=== PATIENT | male | born 1960 | race Caucasian/White ===

== ENCOUNTER 2024-02-03 19:12 | Emergency (ER) | payer OTHER, SELFPAY ==
[2024-02-03 19:28] VITALS: BP 146/81; PULSE 100; RESP 20; TEMP 37.3; O2SAT 100
--- NOTE | 2024-02-03 19:55 | ED.URI ---
HPI - URI/Sore Throat General Chief Complaint: Upper Respiratory Infection Stated Complaint: Headache/Cough Time Seen by Provider: 02/03/24 19:35 Source: patient, RN notes reviewed and old records reviewed Mode of arrival: ambulatory Limitations: no limitations History of Present Illness HPI Narrative: 63 year old male presents to [facility] care with 10 day history of head congestion with nasal drainage and some greenish tinged sputum/nasal drainage, with loose cough, initially sore throat. Patient reports that he just returned from vacation to [facility] and was [place] the whole vacation. Patient reports no shortness of breath or any noted wheezing, states that he has felt feverish at intervals . Patient reports that he has been taking Tylenol,Ibuprofen and decongestant for his symptoms. MD elicited complaint: cough, sore throat, rhinorrhea, nasal congestion, sinus pain and other (headache) Onset (ago): day(s) (10) Pain scale (0-10): 7 Description of mucous: green Able to tolerate fluids by mouth: Yes Treatments prior to arrival: acetaminophen, ibuprofen and other (decogestant) Related Data Home Medications Medication Instructions Recorded Confirmed atorvastatin 80 mg tablet 80 mg PO DAILY 02/03/24 02/03/24 hydrochlorothiazide 25 mg tablet 25 mg PO DAILY 02/03/24 02/03/24 lisinopril 40 mg tablet 40 mg PO DAILY 02/03/24 02/03/24 metformin 1,000 mg tablet 1,000 mg PO BID 02/03/24 02/03/24 omeprazole 20 mg capsule,delayed 20 mg PO DAILY 02/03/24 02/03/24 release semaglutide 14 mg tablet (Rybelsus) 14 mg PO 02/03/24 Allergies Allergy/AdvReac Type Severity Reaction Status Date / Time No Known Allergies Allergy Verified 02/03/24 20:01 Review of Systems Review of Systems: CONSTITUTIONAL:Reports malaise, chills, sweats, or fever. EYES: Denies visual changes, redness, or discharge. ENT: Reports rhinorrhea, congestion, sinus pain,no otalgia and sore throat. CARDIOVASCULAR: Denies chest pain, palpitations, or edema. RESPIRATORY: Reports productive cough.? Denies dyspnea. GASTROINTESTINAL: Denies abdominal pain, nausea, vomiting, diarrhea SKIN: Denies rash or itching. MUSCULOSKELETAL: Denies myalgia. NEUROLOGIC: Reports headache. All systems reviewed & are unremarkable except as noted in HPI and below PMFSH Past Medical History Medical History (Updated 02/04/24 @ 23:49 by Phoebe Delgado NP) Diabetes GERD (gastroesophageal reflux disease) Hyperlipidemia Hypertension Surgical History Surgical History (Updated 02/04/24 @ 23:41 by Phoebe Delgado NP) H/O arthroscopy of left knee S/P cervical spinal fusion Social History Social History (Updated 02/04/24 @ 23:42 by Phoebe Delgado NP) Alcohol intake: current Alcohol use details: social Substance use type: does not use Living arrangements: with family Gender identity (if verbalized by the patient): Male Comments At time of signature, agree with nursing past medical, surgical, social and family history. There is no relevant family history pertinent to the presenting complaint Exam Narrative: GENERAL: Well-appearing, well-nourished, and in no acute distress. HEAD: Normocephalic EYES: PERRLA, conjunctivae clear ENT: Nares clear, turbinates edematous and erythematous, green tinged mucous, sinus pain and headache. Mucous membranes moist. TM pearly jasso with dull light reflex bilaterally; no tragal tenderness. Oropharynx erythematous without lesions. Tonsils not enlarged and without exudate, no drooling, no hoarseness, no trismus, uvula midline.post nasal drainage NECK: Supple. No lymphadenopathy CHEST: Clear to auscultation, breath sounds equal. No wheezing, rhonchi, rales, or stridor. No respiratory distress, speaks in full sentences.productive cough,SAO2 100% on room air HEART: Regular rate and rhythm. No murmur heard. SKIN: Warm, dry, no rash. NEURO: Alert and oriented x3. PSYCH: Normal mood and affect Course
== END 2024-02-03 20:10 | disposition home or self-care (01) ==
PROVIDERS: Emergency Provider Registered Nurse; PCP Internal Medicine
DX: J32.9 Chronic sinusitis, unspecified (principal); E11.9 Type 2 diabetes mellitus without complications; Z79.84 Long term (current) use of oral hypoglycemic drugs; K21.9 Gastro-esophageal reflux disease without esophagitis; E78.5 Hyperlipidemia, unspecified; I10 Essential (primary) hypertension
CPT/HCPCS: 99213; G0463

== ENCOUNTER 2024-10-03 11:31 | Emergency (ER) | payer OTHER, SELFPAY ==
--- OUTSIDE RECORDS SUMMARY | 2024-10-03 11:34 | XMS_ITS | Clinical Summary ---
Author Organization [facility] Address [address] [place] [address] Care Team Providers Care Skin Former Name Role Phone Sanjay Connolly MD Primary Care Provider + Allergies No known active allergies Medications metFORMIN (GLUCOPHAGE) 1,000 mg tablet Take 1 tablet (1,000 mg total) by mouth 2 (two) times a day 0 Active lisinopriL (PRINIVIL,ZESTR IL) 40 mg tablet Take 1 tablet (40 mg total) by mouth daily 0 Active hydroCHLOROthia zide (HYDRODIURIL) 25 mg tablet Take 1 tablet (25 mg total) by mouth daily 0 Active atorvastatin (LIPITOR) 80 mg tablet Take 1 tablet (80 mg total) by mouth daily 0 Active omeprazole (PriLOSEC) 20 mg capsule Take 1 capsule (20 mg total) by mouth daily 0 Active FreeStyle Av 2 Sensor kit WEAR FOR 14 DAYS TO CHECK BLOOD SUGARS DAILY. 3 Active Rybelsus 14 mg tablet Take 1 tablet (14 mg total) by mouth daily 3 Active aspirin 81 mg enteric coated tablet Take 1 tablet (81 mg total) by mouth daily Active HYDROcodone-alfred taminophen (NORCO) 5-325 mg per tabletIndicatio ns:Pain Take 1-2 tablets every 4-6 hours as needed for pain 50 tablet 3 Active Additional Information Patient not taking.Reported on 02/08/2023 Active Problems Problem Noted Date Diagnosed Date Complex tear of medial menis cus of left knee as current injury 12/14/2022 Screen for colon cancer 09/09/2018 Overview (09/09/2018): Added automatically from request for surgery [id number] Diabetes mellitus 03/11/2018 02/08/2023 Lower extremity edema 11/22/2017 02/08/2023 Obesity (BMI 30-39.9) 11/22/2017 02/08/2023 Tobacco use 10/11/2015 02/08/2023 Chronic kidney disease, stage I 01/15/2014 02/08/2023 Hyperlipidemia 11/20/2012 02/08/2023 Hypertension, essential 11/20/2012 02/09/20 Surgical History Surgery Date Site/Laterality Comments KNEE SURGERY Left CERVICAL SPINE SURGERY Fusions VASECTOMY KNEE SURGERY 12/25/2022 Left Left knee arthroscopy with synovectomy and femoral chondroplasty Medical History Medical History Date Comments Diabetes mellitus (HCC) Hypertension Gastric reflux Gout Hypercholesteremia Complex tear of medial meniscus of left knee as current injury Type 2 diabetes mellitus (HCC) Family History Medical History Relation Name Comments Arthritis Other Cancer Other Diabetes Other Heart disease Other Hypertension Other Mental illness Other Relation Name Status Comments Other Social History Tobacco Use Types Packs/Day Years Used Date Smoking Tobacco: Former Cigarettes Smokeless Tobacco: Former Chew Tobacco Cessation:Counseling Given: Not Answered Comments:Quit smoking >30 years ago AUDIT-C Answer Date Recorded Q1: How often do you have a drink containing alcohol? Never 12/25/2022 Q2: How many drinks containi ng alcohol do you have on a typical day when you are drinking? Patient does not drink Q3: How often do you have si x or more drinks on one occasion? Never 12/25/2022 Personal Safety Answer Date Recorded Have you ever been in or are you currently in a harmful physical or emotional relationship or is someone making you feel afraid or unsafe? 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 Gender Identity Not on file Sexual Orientation Not on file Obstetrics History Last Filed Vital Signs Vital Sign Reading Time Taken Comments Blood Pressure 168/88 12/25/2022 11:05 AM CDT Pulse 68 12/25/2022 11:05 AM CDT Temperature 36.1 C (97 F) 12/25/2022 9:51 AM CDT Respiratory Rate 12 12/25/2022 11:05 AM CDT Oxygen Saturation 97% 12/25/2022 11:05 AM CDT Inhaled Oxygen Concentration - - Weight 81.6 kg (180 lb) 02/08/2023 11:40 AM CDT Height 172.7 cm (5' 8 ) 02/08/2023 11:40 AM CDT Body Mass Index 27.37 02/08/2023 11:40 AM CDT Plan of Treatment Health Maintenance Due Date Last Done Comments Albumin Creatinine Ratio, Urine 1960 Colon Cancer Screening-Colonoscopy 1960 Depression Screening 1960 Hemoglobin A1C 1960 Hepatitis C Screening 1960 Prostate Cancer Screening-PSA 1960 eGFR 1960 Dilated Eye Exam 1960 Foot Exam 1960 Lipid Panel 1960 DTaP/Tdap/Td Vaccine (1 - Tdap) 12/24/1971 Hepatitis B Screening 1978 Regular Well Visit/Exam 18-64 1978 Zoster Vaccine (1 of 2) 2010 Pneumococcal vaccine <65 (2 of 2 - PCV) 08/11/2020 1 10/12/2018 Influenza Vaccine (#1) 2024 08/11/2019 Insurance [employer] OPEN ACCESS [employer] [employer] MEDICARE SUPP Care Teams Skin Former Relationship Specialty Start Date End Date Sanjay Connolly MD [address] [facility] [place] [address] PCP - General Internal Medicine 09/03/18
--- OUTSIDE RECORDS SUMMARY | 2024-10-03 11:34 | XMS_ITS | Clinical Summary ---
Author Organization [facility] Address [address] [facility] Attn: Epic Prelude ADT [place] [address] Care Team Providers Care Oil Refinery Operator Name Role Phone Provider, Abstract Aok Primary Care Provider Alexa vailable Allergies No known active allergies Medications atorvastatin (LIPITOR) 10 mg tablet TAKE 1 TABLET BY MOUTH AT BEDTIME 30 Tablet 4 08/02/2016 Active amLODIPine-olme sartan 10-40 mg Tablet Take 1 Tablet by mouth daily. 90 Tablet 0 08/13/2016 Active dapagliflozin-m etFORMIN (Xigduo XR) 10-1,000 mg tablet, IR & ER, biphasic 24hr TAKE 1 TABLET BY MOUTH DAILY 90 Each 0 07/05/2016 Active pioglitazone (ACTOS) 45 mg tablet TAKE 1 TAB (45 MG) BY MOUTH DAILY WITH BREAKFAST. 30 Tablet 10 12/27/2015 Active hydroCHLOROthia zide 25 mg tablet TAKE 1 TABLET BY MOUTH EVERY DAY 30 Tablet 0 08/03/2016 Active atorvastatin (LIPITOR) 10 mg tablet TAKE 1 TABLET AT BEDTIME 30 Tablet 4 12/27/2015 Active metFORMIN (GLUCOPHAGE XR) 500 mg Extended Release 24 hour tablet TAKE 1 TABLET BY MOUTH EVERY DAY 90 Tablet 3 01/11/2015 Active Active Problems Problem Noted Date Diagnosed Date Tobacco use 10/11/2015 Chronic kidney disease, stage I 01/15/2014 Type 2 diabetes mellitus with diabetic nephropat hy 01/15/2014 HTN (hypertension) 11/20/2012 Hyperlipidemia 11/20/2012 Resolved Problems Problem Noted Date Diagnosed Date Resolved Date Diabetes mellitus type II, c ontrolled, with no complications 11/20/2012 01/15/2014 Family History Medical History Relation Name Comments High Cholesterol Brother Hypertension Brother Healthy Father Diabetes Mother Heart Disease Mother High Cholesterol Mother Hypertension Mother High Cholesterol Sister 1 Hypertension Sister 1 Healthy Sister 2 Other Sister 2 Relation Name Status Comments Brother Alive Father Alive Mother Sister 1 Alive Sister 2 Alive Social History Tobacco Use Types Packs/Day Years Used Date Smoking Tobacco: Former Cigarettes Q uit: 11/21/1991 Smokeless Tobacco: Current Alcohol Use Standard Drinks/Week Comments Yes 0 (1 standard drink = 0.6 oz pur e alcohol) Sex and Gender Information Value Date Recorded Sex Assigned at Not on file Legal Sex Male 10:12 AM SEAMING INSPECTOR Gender Identity Not on file Sexual Orientation Not on file Last Filed Vital Signs Vital Sign Reading Time Taken Comments Blood Pressure 112/80 10/11/2015 10:29 AM SEAMING INSPECTOR Pulse 68 10/11/2015 10:29 AM SEAMING INSPECTOR Temperature 36.1 C (96.9 F) 10/11/2015 10:29 AM SEAMING INSPECTOR Respiratory Rate 20 10/11/2015 10:29 AM SEAMING INSPECTOR Oxygen Saturation - - Inhaled Oxygen Concentration - - Weight 89.9 kg (198 lb 3.2 oz) 10/11/2015 10:29 AM SEAMING INSPECTOR Height 171.5 cm (5' 7.5 ) 10/11/2015 10:29 AM CS T Body Mass Index 30.58 10/11/2015 10:29 AM SEAMING INSPECTOR Plan of Treatment Health Maintenance Due Date Last Done Comments PNEUMOCOCCAL VACCINE 0-64 YE ARS (1 of 2 - PCV) 1966 DTAP/TDAP/TD VACCINES (1 - Tdap) 12/24/1979 COLORECTAL SCREENING 2005 Colorectal Cancer Screening 2005 FIT-DNA Q 3 years 2005 FIT/FOBT Q 1 year 2005 Flex Sig/CT Colonography Q 5 years 2005 ZOSTER VACCINE (1 of 2) 2010 DIABETES ANNUAL FOOT EXAM 12/08/2015 12/07/2014 DIABETES ANNUAL RETINAL EXAM 12/08/2015 12/07/2014 DIABETES MICROALBUMIN ANNUAL SCREEN 12/08/201512/07 LDL CHOLESTEROL ANNUAL 12/08/2015 12/07/2014 DIABETES HBA1C Q 6 MONTHS 04/10/20162015, 10/11/2015, 12/07/2014 RSV VACCINE (60+ or ) (1 - Risk 60-74 years 1-dose series) 2020 INFLUENZA VACCINE (#1) 2024 Procedures Procedure Name Priority Date/Time Associated Diagnosis Comments POC HEMOGLOBIN A1C Routine 10/11/2015 10 :45 AM SEAMING INSPECTOR MICROALBUMIN/CREATIN INE RATIO, RANDOM UR Routine 12/07/2014 9:40 AM CDT LIPID PANEL Routine 12/07/2014 9:31 AM CDT from Last 3 Months or Most Recently Relevant to Health Maintenance Results * (ABNORMAL) POC HEMOGLOBIN A1C (10/11/2015 10:45 AM SEAMING INSPECTOR) HGB A1C POC 7.0(A) 4.0 - 6.0 % 10/11/2015 10:45 AM SEAMING INSPECTOR [facility] Blood, capillary 10/11/2015 10:45 AM SEAMING INSPECTOR us Luis Manuel Hutchinson MD POINT OF CARE TESTING Final Re sult [facility] * MICROALBUMIN/CREATININE RATIO, RANDOM UR (12/07/2014 9:40 AM CDT) MICROALBUMIN, URINE 3.0 No Known Ref. Range mg/dL 12/07/2014 1:41 PM CDT [facility] CREATININE, URINE 213.9 40.0 - 278.0 mg/dL 12/07/2014 1:41 PM CDT [facility] Comment: Reference Range varies with fluid intake and diet. MICROALBUMIN/CR EAT RATIO, UR 14.0 mg/g Creatinine 12/07/2014 1:41 PM CDT [facility] Comment: Condition mg/g Creatinine Normal Males <17 Normal Females <25 Microalbuminuria Males 17-299 Microalbuminuria Females 25-299 Overt proteinuria >=300 Urine Collection / Unknown 12/07/2014 9:40 AM CDT 12/07/2014 12:42 PM CDT us Luis Manuel Hutchinson MD URINE ORDERABLES Final Result [facility] CLIA# [id number] [address] [place] [address] [facility] CLIA# [id number] [address] [place] [address] * (ABNORMAL) LIPID PANEL (12/07/2014 9:31 AM CDT) CHOLESTEROL 193 0 - 199 mg/dL 12/07/2014 2:49 PM CDT [facility] TRIGLYCERIDE 267(H) <150 mg/dL 12/07/2014 2:49 PM T [facility] HDL 41(L) >55 mg/dL 12/07/2014 2:49 PM CDT [facility] LDL CALCULATED 99 0 - 99 mg/dL 12/07/2014 2:49 PM CDT [facility] NON-HDL CHOLESTEROL 152 mg/dL 12/07/2014 2:49 PM T [facility] Blood Collection / Unknown 12/07/2014 9:31 AM CDT 12/07/2014 12:42 PM CDT Narrative [facility] - 12/07/2014 2:49 PM CDT TOTAL CHOLESTEROL mg/dL Desirable <200 Borderline high 200-239 High >=240 TRIGLYCERIDES mg/dL Normal <150 Borderline high 150-199 High 200-499 Very high >=500 HDL CHOLESTEROL mg/dL Low <40 Normal 40-60 Desirable >60 LDL CHOLESTEROL mg/dL Optimal <100 Low risk 100-129 Borderline high 130-159 High 160-189 Very high >=190 NON HDL CHOLESTEROL mg/dL Desirable <130 Borderline high 130-159 High 160-189 Very high >=190 Based on AHA/NCEP Guidelines us Luis Manuel Hutchinson MD CHEMISTRY ORDERABLES Final Res ult [facility] CLIA# [id number] [address] [place] [address] [facility] CLIA# [id number] [address] [place] [address] from Last 3 Months or Most Recently Relevant to Health Maintenance Care Teams Oil Refinery Operator Relationship Specialty Start Date End Date Provider, Abstract Aok NO ADDRESS ON FILE PCP - General Family Practice 01/25/20
--- OUTSIDE RECORDS SUMMARY | 2024-10-03 11:34 | XMS_ITS | Referral Summary ---
Author Organization [facility] Address [address] [place] [address] Care Team Providers Care Project Portfolio Analyst Name Role Phone Sanjay Connolly MD Primary [...] (09/09/2018): Added automatically from request for surgery [id number] Diabetes mellitus 03/11/2018 02/08/2023 Lower extremity edema 11/22/2017 02/08/2023 Obesity (BMI 30-39.9) 11/22/2017 02/08/2023 Tobacco use 10/11/2015 02/08/2023 Chronic kidney disease, stage I 01/15/2014 02/08/2023 Hyperlipidemia 11/20/2012 02/08/2023 Hypertension, essential 11/20/2012 02/09/20 Social History Tobacco Use Types Packs/Day Years [...] on file 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
--- OUTSIDE RECORDS SUMMARY | 2024-10-03 11:34 | XMS_ITS | Clinical Summary ---
Author Organization [facility] Address [address] [place] [address] Phone Care Team Providers Care Low Altitude Air Defense Gunner Name Role Phone Provider, Abstract Aok Primary Care Provider Alexa vailable Allergies No known active allergies Medications aspirin (RIK) 81 mg Oral Tab Take 1 Tab by mouth daily. Active atorvastatin (LIPITOR) 10 mg tablet TAKE 1 TABLET BY MOUTH AT BEDTIME 30 Tab 6 10/25/2013 Active metFORMIN (GLUCOPHAGE XR) 500 mg Extended Release 24 hour tablet TAKE 1 TABLET BY MOUTH EVERY DAY 90 Tab 3 01/11/2015 Active atorvastatin (LIPITOR) 10 mg tablet TAKE 1 TABLET AT BEDTIME 30 Tablet 4 12/27/2015 Active pioglitazone (ACTOS) 45 mg tablet TAKE 1 TAB (45 MG) BY MOUTH DAILY WITH BREAKFAST. 30 Tablet 10 12/27/2015 Active XIGDUO XR 10-1,000 mg tablet, IR & ER, biphasic 24hr TAKE 1 TABLET BY MOUTH DAILY 90 Each 0 07/05/2016 Active atorvastatin (LIPITOR) 10 mg tablet TAKE 1 TABLET BY MOUTH AT BEDTIME 30 Tablet 4 08/02/2016 Active HYDROCHLOROTHIA ZIDE 25 mg tablet TAKE 1 TABLET BY MOUTH EVERY DAY 30 Tablet 08/03/2016 Active amLODIPine-olme sartan (CURT) 10-40 mg Tablet Take 1 Tablet by mouth daily. 90 Tablet 08/13/2016 Active Active Problems Problem Noted Date Diagnosed Date Tobacco use 10/11/2015 Type 2 diabetes mellitus with diabetic nephropat hy 01/15/2014 Chronic kidney disease, stage I 01/15/2014 HTN (hypertension) 11/20/2012 Hyperlipidemia 11/20/2012 Resolved Problems Problem Noted Date Diagnosed Date Resolved Date Diabetes mellitus type II, c ontrolled, with no complications 11/20/2012 01/15/2014 Family History Medical History Relation Name Comments High Cholesterol Brother Hypertension Brother Healthy Father Diabetes Mother Heart Disease Mother High Cholesterol Mother Hypertension Mother Healthy Sister 1 Other Sister 1 High Cholesterol Sister 2 Hypertension Sister 2 Relation Name Status Comments Brother [...] at Not on file Legal Sex Male 2:49 PM FLEXIBLE SHAFT WINDER Gender Identity Not on file Sexual Orientation Not on file Last Filed Vital Signs Vital Sign Reading Time Taken Comments Blood Pressure 112/80 10/11/2015 10:29 AM FLEXIBLE SHAFT WINDER Pulse 68 10/11/2015 10:29 AM FLEXIBLE SHAFT WINDER Temperature 36.1 C (96.9 F) 10/11/2015 10:29 AM FLEXIBLE SHAFT WINDER Respiratory Rate 20 10/11/2015 10:29 AM FLEXIBLE SHAFT WINDER Oxygen Saturation 99% 10/11/2015 10:29 AM FLEXIBLE SHAFT WINDER Inhaled Oxygen Concentration - - Weight 89.9 kg (198 lb 3.2 oz) 10/11/2015 10:29 AM FLEXIBLE SHAFT WINDER Height 171.5 cm (5' 7.5 ) 10/11/2015 10:29 AM CS T Body Mass Index 30.58 10/11/2015 10:29 AM FLEXIBLE SHAFT WINDER Plan of Treatment Health Maintenance Due Date Last Done Comments PNEUMOCOCCAL VACCINE 0-64 YE ARS (1 of 2 - PCV) 1966 DTAP/TDAP/TD VACCINES (1 - Tdap) 12/24/1979 COLORECTAL SCREENING 2005 Colorectal Cancer Screening 2005 FIT-DNA Q 3 years 2005 FIT/FOBT Q 1 year 2005 Flex Sig/CT Colonography Q 5 years 2005 ZOSTER VACCINE (1 of 2) 2010 DIABETES ANNUAL FOOT EXAM 12/08/2015 12/07/2014, DIABETES ANNUAL RETINAL EXAM 12/08/2015 12/07/2014 DIABETES MICROALBUMIN ANNUAL SCREEN 12/08/2015 12/07/2014, 12/07/2014, 01/19/2014, Additional history exists LDL CHOLESTEROL ANNUAL 12/08/2015 5, 12/07/2014, 01/19/2014, Additional history exists DIABETES HBA1C Q 6 MONTHS 04/10/20162015, 12/07/2014, 12/07/2014, Additional history exists RSV VACCINE (60+ or ) (1 - Risk 60-74 years 1-dose series) 2020 INFLUENZA VACCINE (#1) 2024 Procedures Procedure Name Priority Date/Time Associated Diagnosis Comments POC HEMOGLOBIN A1C Routine 10/11/2015 10 :45 AM FLEXIBLE SHAFT WINDER Type 2 diabetes mellitus with diabetic nephropathy ([facility]/HCC) MICROALBUMIN/CREATI NINE RATIO, RANDOM UR Routine 12/07/2014 9:40 AM CDT Type II or unspecified type diabetes mellitus with renal manifestations, not stated as uncontrolled ([facility]) Chronic kidney disease, stage I LIPID PANEL Routine 12/07/2014 9:31 AM CDT Type II or unspecified type diabetes mellitus with renal manifestations, not stated as uncontrolled ([facility]) Hyperlipidemia from Last 3 Months or Most Recently Relevant to Health Maintenance Results * (ABNORMAL) POC HEMOGLOBIN A1C (10/11/2015 10:45 AM FLEXIBLE SHAFT WINDER) HGB A1C POC 7.0(A) 4.0 - 6.0 % [facility] Capillary blood specimen (specimen) 10/11/2015 10:45 AM FLEXIBLE SHAFT WINDER us Luis Manuel Hutchinson MD POINT OF CARE TESTING Final Re sult [facility] * MICROALBUMIN/CREATININE RATIO, RANDOM UR (12/07/2014 9:40 AM CDT) MICROALBUMIN, URINE 3.0 No Known Ref. Range mg/dL 12/07/2014 1:41 PM CDT [facility] CREATININE, URINE 213.9 40.0 - 278.0 mg/dL 12/07/2014 1:41 PM CDT [facility] Comment: Reference Range varies with fluid intake and diet. MICROALBUMIN/CR EAT RATIO, UR 14.0 mg/g Creatinine 12/07/2014 1:41 PM CDT [facility] Comment: Condition mg/g Creatinine Normal Males <17 Normal Females <25 Microalbuminuria Males 17-299 Microalbuminuria Females 25-299 Overt proteinuria >=300 Urine Collection / Unknown 12/07/2014 9:40 AM CDT 12/07/2014 12:42 PM CDT us Luis Manuel Hutchinson MD URINE ORDERABLES Final Result [facility] CLIA# [id number] [address] [place] [address] * (ABNORMAL) LIPID PANEL (12/07/2014 9:31 AM CDT) CHOLESTEROL 193 0 - 199 mg/dL 12/07/2014 2:49 PM CDT [facility] TRIGLYCERIDE 267(H) <150 mg/dL 12/07/2014 2:49 PM CDT [facility] HDL 41(L) >55 mg/dL 12/07/2014 2:49 PM CDT [facility] LDL CALCULATED 99 0 - 99 mg/dL 12/07/2014 2:49 PM CDT [facility] NON-HDL CHOLESTEROL 152 mg/dL 12/07/2014 2:49 PM CDT [facility] Blood Collection / Unknown 12/07/2014 9:31 AM CDT 12/07/2014 12:42 PM CDT Narrative [facility] - 12/07/2014 2:49 PM CDT [...] Hutchinson MD CHEMISTRY ORDERABLES Final Res ult [facility] CLIA# [id number] [address] [place] [address] from Last 3 Months or Most Recently Relevant to Health Maintenance Insurance [employer] [facility] Care Teams Low Altitude Air Defense Gunner Relationship Specialty Start Date End Date Provider, Abstract Aok NO ADDRESS ON FILE PCP - General Family Practice 01/25/20
--- OUTSIDE RECORDS SUMMARY | 2024-10-03 11:34 | XMS_ITS | Clinical Summary ---
Author Organization [facility] Address [address] [place] [address] Phone Care Team Providers Care Equipment Coordinator Name Role Phone Fritz Boyer MD Primary Care Provider Allergies No known active allergies Medications metFORMIN (GLUCOPHAGE) 1000 MG Tablet 1 Active atorvastatin (LIPITOR) 80 MG Tablet Take 80 mg by mouth. 8 Active Rybelsus 7 MG Tablet TAKE 1 TABLET BY MOUTH ONCE DAILY 2 Active aspirin EC (Kb Aspirin EC Low Dose) 81 MG Tablet Delayed Response Take 1 Tablet by mouth daily. Active Continuous Glucose Sensor (SaqinaStyle Av 2 Sensor) [facility] [place] 14 DAYS TO CHECK BLOOD SUGARS DAILY. 3 Active amLODIPine (NORVASC) 5 MG Tablet Take 1 tablet by mouth once daily 60 Tablet 4 Active lisinopril (PRINIVIL, ZESTRIL) 40 MG Tablet Take 1 tablet by mouth once daily 90 Tablet 4 Active hydroCHLOROthia zide 25 MG Tablet Take 1 Tablet by mouth daily. 90 Tablet 5 Active hydroCHLOROthia zide 25 MG Tablet Take 25 mg by mouth daily. 0 09/07/19 25 Discontinu ed(Reorder ) Active Problems Problem Noted Date Diagnosed Date Obesity (BMI 30-39.9) 11/22/2017 Tobacco use 10/11/2015 Chronic kidney disease, stage I 01/15/2014 Type 2 diabetes mellitus wit hout complication, without long-term current use of insulin 01/15/2014 Essential hypertension, benign 11/20/2012 Resolved Problems Problem Noted Date Diagnosed Date Resolved Date Hyperlipidemia 11/20/2012 04/21/2024 Encounters Date Type Department Care Team Description 09/07/2024 Refill [facility] [address] [place] [address] Fritz Boyer MD Medication Refill 07/28/2024 Refill [facility] [address] [place] [address] Sailaja Quiroga PAC Medication Refill 07/22/2024 Refill [facility] [address] [place] [address] Fritz Boyer MD Medication Refill from Last 3 Months Immunizations Immunization Administration Dates Next Due Pneumococcal Vaccine - 13 Valent 11/05/2023 Social History Tobacco Use Types Packs/Day Years Used Date Smoking Tobacco: Never Smokeless Tobacco: Current Chew Tobacco Cessation:Ready to Q uit: Not Asked; Counseling Given: Not Answered Alcohol Use Standard Drinks/Week Comments Not Currently 0 (1 standard drink = 0.6 oz pur e alcohol) PHQ-2 Answer Date Recorded Total Score - Questions 1-9 0 03/27 Sexually Active Control Partners Comments Not Currently Sex and Gender Information Value Date Recorded Sex Assigned at Not on file Legal Sex Male 11:19 AM CDT Gender Identity Not on file Sexual Orientation Not on file Last Filed Vital Signs Vital Sign Reading Time Taken Comments Blood Pressure 152/94 04/21/2024 10:12 AM CDT Pulse 66 04/21/2024 10:12 AM CDT Temperature 36.4 C (97.5 F) 04/21/2024 10:12 AM CDT Respiratory Rate 12 04/21/2024 10:12 AM CDT Oxygen Saturation 97% 04/21/2024 10:12 AM CDT Inhaled Oxygen Concentration - - Weight 83 kg (183 lb) 04/21/2024 10:12 AM CDT Height 172.7 cm (5' 8 ) 04/21/2024 10:12 AM CDT Body Mass Index 27.83 04/21/2024 10:12 AM CDT Plan of Treatment Upcoming Encounters Date Type Department Care Team (Late st Contact Info) Description 10/22/2024 10:00 AM DATA TECHNICAL LEAD Office Visit [facility] [place] [address] [place] [id number] Fritz Boyer MD [address] [place] [address] Health Maintenance Due Date Last Done Comments Hepatitis C Virus (HCV) Screening 1960 Colonoscopy 2005 Colorectal Cancer Screening 2005 Cologuard 2010 Immunochemical Fecal Occult Blood 2010 Influenza Immunization (#1) 2024 08/11/2019 SARS-COV-2 Immunization (3 - season) 2024 12/16/2020, 11/18/2020 Diabetes: Hemoglobin A1c 10/22/2024 024, 10/11/2015 Diabetes: Eye Exam 12/01/2024 12/02/2023 Diabetes: Foot Exam 04/21/2025 04/21/2024 Diabetes: Nephropathy Screening 04/23/2025 04/23/2024 Pneumococcal Immunization (5 0+ years) (3 of 3 - PCV20 or PCV21) 11/04/2028 11/05/2023, 08/11/2019 Respiratory Syncytial Virus (RSV) Immunization (Adult) (1 - 1-dose 75+ series) 12/24/2035 Zoster Immunization Completed 12/13/2022, 09/21/2022 DTaP/Tdap/Td Immunization Discontinued 03/04/2023 TdaP Immunization Completed 03/04/2023 Pneumococcal Immunization Combined Discontinued 11/05/2023, 08/11/2019 PSA Discussion Completed 04/21/2024 Hepatitis B Immunization Aged Out No longer eligible based on patient's age to complete this topic Meningococcal Immunization (ACWY) Aged Out No longer eligible based on patient's age to complete this topic Rotavirus Immunization Aged Out No lo nger eligible based on patient's age to complete this topic Procedures Procedure Name Priority Date/Time Associated Diagnosis Comments CMP (COMPREHENSIVE METABOLIC PANEL) Routine 04/23/2024 Type 2 diabetes mellitus without complication, without long-term current use of insulin (HCC) Essential hypertension, benign POCT GLYCOSYLATED HEMOGLOBIN Routine 04/21/2024 10:42 AM CDT Type 2 diabetes mellitus without complication, without long-term current use of insulin (HCC) from Last 3 Months or Most Recently Relevant to Health Maintenance Results * CMP (COMPREHENSIVE METABOLIC PANEL) (04/23/2024) Blood 04/23/2024 us Fritz Boyer MD CHEMISTRY ORDERABLES Final Result * (ABNORMAL) POCT GLYCOSYLATED HEMOGLOBIN (04/21/2024 10:42 AM CDT) HGB-A1C 6.7(A) 4 - 6 % 04/21/2024 10:4 2 AM CDT Fritz Boyer MD POINT OF CARE TESTING (MANU AL) Final Result from Last 3 Months or Most Recently Relevant to Health Maintenance Insurance CIG Care Teams Equipment Coordinator Relationship Specialty Start Date End Date Fritz Boyer MD [address] [place] [address] PCP - General Internal Medicine 04/21/24
[2024-10-03 11:43] VITALS: BP 171/86; PULSE 72; RESP 16; TEMP 36.2; O2SAT 100
--- NOTE | 2024-10-03 13:12 | ED.GENADULT ---
HPI - General Adult General Chief complaint: Unspecified Stated complaint: high blood pressure check Source: patient Mode of arrival: ambulatory Limitations: no limitations History of Present Illness HPI narrative: Patient presents for evaluation of elevated blood pressure he indicates he takes lisinopril 40 mg daily, hydrochlorothiazide 25 mg daily and was started on amlodipine 5 mg daily about a month ago. He indicates he was given a one month script with no refills for the amlodipine. He stopped taking the medication after two weeks because he thought his blood pressure was fixed. Checked his blood pressure yesterday and systolic readings were in the 160s to 170s. He took all three medications and his blood pressure remained elevated. He was concerned about the reading so came in today for further evaluation and treatment. He denies any chest pain, SOB or palpitations. He does have a full frontal headache. Related Data Home Medications ?Medication ?Instructions ?Recorded ?Confirmed ?Last Taken ?Type atorvastatin 80 mg tablet 80 mg PO DAILY 02/03/24 02/03/24 Unknown History hydrochlorothiazide 25 mg tablet 25 mg PO DAILY 02/03/24 02/03/24 Unknown History lisinopril 40 mg tablet 40 mg PO DAILY 02/03/24 02/03/24 Unknown History metformin 1,000 mg tablet 1,000 mg PO BID 02/03/24 02/03/24 Unknown History omeprazole 20 mg capsule,delayed 20 mg PO DAILY 02/03/24 02/03/24 Unknown History release semaglutide 14 mg tablet (Rybelsus) 14 mg PO 02/03/24 Unknown History Allergies Allergy/AdvReac Type Severity Reaction Status Date / Time No Known Allergies Allergy Verified 02/03/24 20:01 Review of Systems Review of Systems: CONSTITUTIONAL: Denies fever, chills, or sweats. EYES: Denies visual changes, redness, or discharge. ENT: Denies rhinorrhea, congestion, sore throat, or otalgia. CARDIOVASCULAR: Denies chest pain, palpitations, or edema. RESPIRATORY: Denies cough or dyspnea. GASTROINTESTINAL: Denies abdominal pain, nausea, vomiting, or diarrhea. GENITOURINARY: Denies dysuria or hematuria. SKIN: Denies rash or itching. MUSCULOSKELETAL: Denies back pain, joint pain, or myalgia. NEUROLOGIC: Reports dull frontal headache. Denies numbness, dizziness, or weakness. PSYCHIATRIC: Denies anxiety or depression. [facility] Past Medical History Medical History GERD (gastroesophageal reflux disease) Diabetes Hyperlipidemia Hypertension Surgical History Surgical History S/P cervical spinal fusion H/O arthroscopy of left knee Family History Family History Mother Family history non-contributory Social History Social History Alcohol intake: current Alcohol use details: social Substance use type: does not use Living arrangements: with family Gender identity (if verbalized by the patient): Male Spiritual care concerns: No Exam Narrative: GENERAL: Well-appearing, well-nourished, and in no acute distress. HEAD: Normocephalic, atraumatic. EYES: PERRLA and EOMI. ENT: Nares clear, no rhinorrhea or epistaxis. Mucous membranes moist. Oropharynx without tonsillar hypertrophy exudate or other lesions. Bilateral TMs pearly jasso nonbulging NECK: Supple. No adenopathy or masses. No carotid bruits or JVD CHEST: Clear to auscultation. No respiratory distress. No wheezes rales or rhonchi HEART: Regular rate and rhythm. No murmur heard. Normal peripheral pulses. ABDOMEN: Soft, nontender, nondistended, normal active bowel sounds. EXTREMITIES: Normal range of motion. No edema. SKIN: Warm, dry, no rash. NEURO: No focal deficits. Alert and oriented x3. PSYCH: Normal mood and affect. Course Course Emergency Course: This is a 63-year-old male who came in today for elevated blood pressure. He lacked insight regarding the need to take medications on a daily basis. Educated him on the need to take as directed. He has no chest pain or shortness of breath. Advise he take his medications daily and monitor his blood pressure closely. In the event that his blood pressure is in the 150s over 100s or higher, he can take an additional dose of 5mg amlodipine until he can see his PCP next week for further evaluation and treatment. In the event that he develops chest pain, palpitations or shortness of breath, he should go to the emergency department. Patient in agreement with plan of care Level of Care: Express Care Visit Vital Signs Vital signs: Vital Signs Temperature 36.2 C L 10/03/24 11:43 Pulse Rate 72 10/03/24 11:43 Respiratory Rate 16 10/03/24 11:43 Blood Pressure 171/86 H 10/03/24 11:43 Pulse Oximetry 100 10/03/24 11:43 Oxygen Delivery Room Air 10/03/24 11:43 Temperature 36.2 C L 10/03/24 11:43 Pulse Rate 72 10/03/24 11:43 Respiratory Rate 16 10/03/24 11:43 Blood Pressure 171/86 H 10/03/24 11:43 Pulse Oximetry 100 10/03/24 11:43 Oxygen Delivery Room Air 10/03/24 11:43 Medical Decision Making Vital Signs Vital Signs: Vital Signs Temperature 36.2 C L 10/03/24 11:43 Pulse Rate 72 10/03/24 11:43 Respiratory Rate 16 10/03/24 11:43 Blood Pressure 171/86 H 10/03/24 11:43 Pulse Oximetry 100 10/03/24 11:43 Oxygen Delivery Room Air 10/03/24 11:43 Temperature 36.2 C L 10/03/24 11:43 Pulse Rate 72 10/03/24 11:43 Respiratory Rate 16 10/03/24 11:43 Blood Pressure 171/86 H 10/03/24 11:43 Pulse Oximetry 100 10/03/24 11:43 Oxygen Delivery Room Air 10/03/24 11:43 Discharge Plan Discharge Clinical Impression: Hypertension, Encounter for medication counseling Patient Disposition: Home, Self-Care Condition: Stable Instructions: Antibiotic Form, Hypertension (ED), Medication Monitoring at Home (ED) Additional Instructions: PLEASE TAKE ALL OF YOUR BLOOD PRESSURE MEDICATIONS DAILY: LISINOPRIL 40MG DAILY, HYDROCHLOROTHIAZIDE 25MG DAILY, AND AMLODIPINE 5MG DAILY. IF YOU BLOOD PRESSURE IS OVER 150/100 ONE HOUR AFTER YOU TAKE YOUR MEDICATIONS, PLEASE TAKE ANOTHER DOSE OF AMLODIPINE 5 MG DAILY. DO NOT EXCEED 10 MG OF AMLODIPINE DAILY. PLEASE FOLLOW-UP WITH DR. GREER NEXT WEEK IF YOU HAVE CHEST PAIN, SHORTNESS OF BREATH OR PALPITATIONS, PLEASE GO TO THE EMERGENCY DEPARTMENT Patient Language: Austrian Prescriptions: No Action atorvastatin 80 mg tablet 80 mg PO DAILY metformin 1,000 mg tablet 1,000 mg PO BID omeprazole 20 mg capsule,delayed release(DR/EC) 20 mg PO DAILY hydrochlorothiazide 25 mg tablet 25 mg PO DAILY lisinopril 40 mg tablet 40 mg PO DAILY Rybelsus 14 mg tablet 14 mg PO Rx Instructions: PRESCRIBED amoxicillin-pot clavulanate 875-125 mg tablet 1 tablet PO Q12H Qty: 20 0RF Follow-up/Referrals: Merlin,Fritz Bae MD [Primary Care Provider] - Time of Disposition: 13:24
== END 2024-10-03 13:23 | disposition home or self-care (01) ==
PROVIDERS: Emergency Provider Nurse Practitioner; PCP Internal Medicine
DX: I10 Essential (primary) hypertension (principal); Z71.89 Other specified counseling; E11.9 Type 2 diabetes mellitus without complications; Z79.84 Long term (current) use of oral hypoglycemic drugs; E78.5 Hyperlipidemia, unspecified; K21.9 Gastro-esophageal reflux disease without esophagitis
CPT/HCPCS: 99211; G0463